=== PATIENT | male | born 1985 | race Caucasian/White ===

== ENCOUNTER 2018-11-14 00:02 | Emergency (ER) | payer MEDICAID ==
[~2018-11-14] VITALS: Ht 167.6 cm; Wt 75.0 kg
[2018-11-14] MEDS ORDERED: NALOXONE HCL 1 MG/ML 2ML VIAL IM ONE (00:30)
[2018-11-14 02:23] VITALS: BP 137/96
== END 2018-11-14 03:04 | disposition home or self-care (01) ==
LOC: ER 00:02
DX: T40.1X1A Poisoning by heroin, accidental (unintentional), initial encounter (principal); Y92.89 Other specified places as the place of occurrence of the external cause; Z88.0 Allergy status to penicillin
CPT/HCPCS: 99283; J2310

== ENCOUNTER 2022-08-11 10:34 | Emergency (ER) | payer MEDICAID ==
[~2022-08-11] VITALS: Ht 167.6 cm; Wt 75.0 kg
[2022-08-11 10:40] VITALS: BP 143/93
== END 2022-08-11 11:14 | disposition left against medical advice (07) ==
LOC: ER 10:34
DX: R20.2 Paresthesia of skin (principal); F11.10 Opioid abuse, uncomplicated; F17.210 Nicotine dependence, cigarettes, uncomplicated; Z88.0 Allergy status to penicillin
CPT/HCPCS: 99283